=== PATIENT | male | born 1980 | race Hispanic/Latino ===

== ENCOUNTER 2019-06-25 14:29 | Inpatient (IN) | payer OTHER ==
[~2019-06-25] VITALS: Ht 185.4 cm; Wt 150.1 kg
[2019-06-25 16:01] VITALS: BP 135/83
[2019-06-25] MEDS ORDERED: DEXTROSE 50%-WATER 50 ML DISP.SYRIN IV PRN (18:45)
[2019-06-25] MEDS ORDERED: ONDANSETRON HCL 4 MG/2 ML VIAL IV PRN (18:45)
[2019-06-25] MEDS ORDERED: POTASSIUM CHLORIDE 20 MEQ ERTAB PO PRN (18:45)
[2019-06-25] MEDS ORDERED: POTASSIUM CHLORIDE 20MEQ/100ML 100 ML IV PRN (18:45)
[2019-06-25] MEDS ORDERED: NITROGLYCERIN 0.4 MG SL TAB SL PRN (18:45)
[2019-06-25] MEDS ORDERED: ACETAMINOPHEN 325 MG TAB PO PRN ×2 (18:45)
[2019-06-25] MEDS ORDERED: HYDROCODONE/ACETAMINOPHEN 5/325 MG TAB PO PRN (18:45)
[2019-06-25] MEDS ORDERED: GLUCAGON 1MG KIT 1 MG ML IM PRN (18:45)
[2019-06-25] MEDS ORDERED: LIDOCAINE HCL-MPF 1% 2ML VIAL IV PRN (18:45)
[2019-06-25] MEDS ORDERED: GUAIFENESIN-DM 200/20 MG 10 ML PO PRN (18:45)
[2019-06-25] MEDS ORDERED: DiphenhydrAMINE HCL 50 MG/ML VIAL IV PRN (18:45)
[2019-06-25] MEDS ORDERED: HYDRALAZINE HCL 20 MG/ML VIAL IV PRN (18:45)
[2019-06-25] MEDS: IPRATROPIUM/ALBUTEROL SULFATE 3 ML SOLUTION IH PRN (19:07)
[2019-06-25 20:28] VITALS: BP 145/83
[2019-06-25] MEDS ORDERED: FAMOTIDINE/PF 20 MG/2 ML VIAL IV SCH (21:00)
[2019-06-25] MEDS: INSULIN HUMULIN R 100 UNIT/ML 3ML SQ SCH (21:00)
[2019-06-25 23:55] VITALS: BP 166/90
[2019-06-26] VITALS (59 sets, daily range): BP systolic 93–284; BP diastolic 49–137
[2019-06-26 05:08] LABS: BASOPHILS % (AUTO) 0.5 % (0.0-5.0); EOSINOPHILS % (AUTO) 2.4 % (0.0-8.0); HEMATOCRIT 22.4 % (42-54); LYMPHOCYTES % (AUTO) 28.3 % (21.0-51.0); MEAN CORPUSCULAR HEMOGLOBIN 23.4 pg (27.0-33.0); MEAN CORPUSCULAR HGB CONC 32.9 g/dL (32.0-36.0); MONOCYTES % (AUTO) 8.3 % (3.0-13.0); NEUTROPHILS % (AUTO) 60.5 % (40.0-77.0); NUCLEATED RED BLOOD CELLS 0.1 % (0.0-0.19); PLATELET COUNT (AUTO) 221 K/uL (130-400); RED BLOOD CELL COUNT(AUTO) 3.16 MIL/uL (4.50-6.20); RED CELL DISTRIBUTION WIDTH 22.9 % (11.0-15.5); WHITE BLOOD COUNT (AUTO) 9.6 K/uL (4.8-10.8)
[2019-06-26 05:13] LABS: HEMOGLOBIN A1C 9.1 % (4.0-6.0)
[2019-06-26 05:28] LABS: CREATININE 0.9 mg/dL (0.5-1.5); POTASSIUM 3.5 mmol/L (3.5-5.1); THYROID STIMULATING HORMONE 3.98 uIU/mL (0.36-3.74)
[2019-06-26] MEDS: INSULIN HUMULIN R 100 UNIT/ML 3ML SQ SCH (05:29)
[2019-06-26] MEDS: IPRATROPIUM/ALBUTEROL SULFATE 3 ML SOLUTION IH PRN ×2 (06:39→19:26)
[2019-06-26] MEDS ORDERED: SODIUM CHLORIDE 0.9% 1000ML 1,000 ML IV ONE (06:57)
[2019-06-26] MEDS ORDERED: AMINOCAPROIC ACID 15,000 MG in SODIUM CHLORIDE 0.9% 500ML 500 ML IV SCH (07:00)
[2019-06-26] MEDS: CLINDAMYCIN 900 MG/D5% WATER 50 ML IV SCH ×3 (07:00→19:50)
[2019-06-26] MEDS ORDERED: EPINEPHRINE 8 MG in SODIUM CHLORIDE 0.9% 250 ML IV SCH (07:00)
[2019-06-26] MEDS ORDERED: NOREPINEPHRINE BITARTRATE 8 MG/NS 250ML IV SCH ×2 (07:00)
[2019-06-26] MEDS ORDERED: PAPAVERINE HCL 30 MG/ML 2ML VIAL ONE (07:02)
[2019-06-26] MEDS ORDERED: BACITRACIN 50,000 UNIT VIAL ONE (07:02)
[2019-06-26] MEDS ORDERED: SODIUM BICARB 8.4% 50ML SYRINGE ONE (07:18)
[2019-06-26] MEDS ORDERED: ROCURONIUM 10MG/1ML SYR 10 MG/ML ML ONE ×3 (07:19→10:26)
[2019-06-26] MEDS ORDERED: ESMOLOL HCL 10 MG/ML 10 ML VIAL ONE (07:41)
[2019-06-26] MEDS ORDERED: NOREPINEPHRINE BITARTRATE 1 MG/1 ML ML IV ONE (07:41)
[2019-06-26] MEDS ORDERED: LIDOCAINE PF 2% 5ML ABBOJECT ONE (07:41)
[2019-06-26] MEDS ORDERED: AMINOCAPROIC ACID 250 MG/ML 20 ML VIAL IV ONE (07:41)
[2019-06-26] MEDS ORDERED: EPINEPHRINE 1 MG/ML AMPULE ONE (07:41)
[2019-06-26] MEDS ORDERED: HEPARIN SODIUM 1000UNIT/ML 10ML VIAL ONE (07:41)
[2019-06-26] MEDS ORDERED: PROTAMINE SULFATE 10 MG/ML 25ML VIAL IV ONE (07:41)
[2019-06-26] MEDS ORDERED: PROPOFOL 10 MG/ML 20ML VIAL IV ONE (07:42)
[2019-06-26] MEDS ORDERED: MIDAZOLAM HCL 1 MG/ML 2ML VIAL ONE (07:42)
[2019-06-26] MEDS ORDERED: SUFENTANIL CITRATE 50 MCG/ML 1ML AMP ONE (07:47)
[2019-06-26] MEDS ORDERED: DELNIDO FORMULA 1 BAG IV ONE (08:09)
[2019-06-26 09:21] LABS: ABG BASE EXCESS 1.7 mmol/L (-2.0-3.0); ABG HCO3 25.8 mmol/L (21.0-28.0); ABG OXYGEN SATURATION 99.4 % (95.0-99.0); ABG PCO2 38 mmHg (35-48)
[2019-06-26] MEDS ORDERED: NITROGLYCERIN 50 MG/D5% WATER 1 BOT ONE (10:02)
[2019-06-26 10:59] LABS: ABG BASE EXCESS 0.2 mmol/L (-2.0-3.0); ABG HCO3 24.3 mmol/L (21.0-28.0); ABG OXYGEN SATURATION 99.5 % (95.0-99.0); ABG PCO2 37 mmHg (35-48)
[2019-06-26 11:59] LABS: ABG BASE EXCESS -1.6 mmol/L (-2.0-3.0); ABG HCO3 22.5 mmol/L (21.0-28.0); ABG OXYGEN SATURATION 99.2 % (95.0-99.0); ABG PCO2 35 mmHg (35-48)
[2019-06-26] MEDS ORDERED: SODIUM CHLORIDE 0.9% 500ML 500 ML IV SCH (12:14)
[2019-06-26] MEDS ORDERED: POTASSIUM PHOS 15 mMOL+NS250ML 250 ML IV PRN (12:15)
[2019-06-26] MEDS ORDERED: SODIUM CHLORIDE 0.9% 250 ML IV PRN (12:15)
[2019-06-26] MEDS ORDERED: ALBUMIN (HUMAN) 5% 250 ML IV PRN (12:15)
[2019-06-26] MEDS ORDERED: DEXTROSE 50%-WATER 50 ML DISP.SYRIN IV PRN (12:15)
[2019-06-26] MEDS ORDERED: SODIUM CHLORIDE 0.9% 10 ML VIAL IVP PRN (12:15)
[2019-06-26] MEDS ORDERED: ACETAMINOPHEN 325 MG TAB PO PRN (12:15)
[2019-06-26] MEDS ORDERED: ACETAMINOPHEN 650 MG SUPPOSITORY RC PRN (12:15)
[2019-06-26] MEDS ORDERED: SODIUM BICARB 50MEQ 50ML VIAL IV PRN (12:15)
[2019-06-26] MEDS ORDERED: MORPHINE SULFATE 2 MG/ML 1ML SYG IV PRN (12:15)
[2019-06-26] MEDS ORDERED: PROPOFOL 1000 MG/100 ML 100 ML IV PRN (12:15)
[2019-06-26] MEDS ORDERED: SODIUM CHLORIDE 0.9% 1000ML 1,000 ML IV SCH (12:15)
[2019-06-26] MEDS ORDERED: GLUCAGON 1MG KIT 1 MG ML IM PRN (12:15)
[2019-06-26] MEDS ORDERED: NOREPINEPHRINE 4MG/NS 250ML 250 ML IV PRN (12:15)
[2019-06-26] MEDS ORDERED: ONDANSETRON HCL 4 MG/2 ML VIAL IV PRN (12:15)
[2019-06-26] MEDS ORDERED: AMINOCAPROIC ACID 15,000 MG in SODIUM CHLORIDE 0.9% 250 ML IV SCH (12:15)
[2019-06-26] MEDS ORDERED: EPINEPHRINE 8 MG in DEXTROSE 5%-WATER 250 ML IV PRN (12:15)
[2019-06-26] MEDS ORDERED: MORPHINE SULFATE 4 MG/1ML SYG IV PRN (12:15)
--- NOTE | 2019-06-26 12:29 | NUR ---
PT WAS RECEIVED FROM [facility] AFTER CABG X 3, PT WAS ACCOMPANIED BY OR STAFF AND DR. Alex. PT WAS CONNECTED TO VENT AT PRESCRIBED SETTINGS AND WILL ASSESS AND SEND LABS AND OBTAIN ABG'S ORDERED.
[2019-06-26 13:06] LABS: HEMATOCRIT 24.4 % (42-54); MEAN CORPUSCULAR HEMOGLOBIN 23.4 pg (27.0-33.0); MEAN CORPUSCULAR HGB CONC 31.6 g/dL (32.0-36.0); MEAN CORPUSCULAR VOLUME 74.1 fL (79-99); NUCLEATED RED BLOOD CELLS 0.1 % (0.0-0.19); PLATELET COUNT (AUTO) 242 K/uL (130-400); RED BLOOD CELL COUNT(AUTO) 3.29 MIL/uL (4.50-6.20); RED CELL DISTRIBUTION WIDTH 23.4 % (11.0-15.5); WHITE BLOOD COUNT (AUTO) 22.2 K/uL (4.8-10.8)
[2019-06-26 13:06] LABS: ABG BASE EXCESS -0.8 mmol/L (-2.0-3.0); ABG HCO3 24.6 mmol/L (21.0-28.0); ABG OXYGEN SATURATION 95.8 % (95.0-99.0); ABG PCO2 44 mmHg (35-48)
[2019-06-26 13:22] LABS: CREATININE 0.9 mg/dL (0.5-1.5); MAGNESIUM 1.4 mg/dL (1.80-2.40); PHOSPHORUS 4.4 mg/dL (2.5-4.9)
[2019-06-26 13:23] LABS: INR 1.23 (0.85-1.15); PARTIAL THROMBOPLASTIN TIME 25.2 SEC (26.3-35.5); PROTHROMBIN TIME 12.8 SEC (9.6-11.6)
--- NOTE | 2019-06-26 13:48 | NUR ---
JORDAN PLAN PATIENT DOWN FOR PROCEDURE. LOLIS WILL CONTINUE TO FOLLOW. Addendum: 06/26/19 at 1350 by WILI LAYTON RN CM Amended: Links added.
[2019-06-26 14:28] LABS: ABG BASE EXCESS 0.9 mmol/L (-2.0-3.0); ABG HCO3 24.8 mmol/L (21.0-28.0); ABG OXYGEN SATURATION 92.6 % (95.0-99.0); ABG PCO2 37 mmHg (35-48)
[2019-06-26] MEDS: MAGNESIUM 2GM PREMIX 50ML 50 ML IV PRN (16:32)
[2019-06-26] MEDS: POTASSIUM CHLORIDE 20MEQ/100ML 100 ML IV PRN (16:32)
[2019-06-26] MEDS: INSULIN REGULAR, HUMAN 3ML 100 UNIT in SODIUM CHLORIDE 0.9% 99 ML IV SCH ×2 (16:39)
[2019-06-26] MEDS: NITROGLYCERIN 50 MG/D5% WATER 250 BOT IV SCH (16:40)
[2019-06-26 17:22] LABS: ABG BASE EXCESS 1.1 mmol/L (-2.0-3.0); ABG HCO3 24.8 mmol/L (21.0-28.0); ABG OXYGEN SATURATION 99.2 % (95.0-99.0); ABG PCO2 35 mmHg (35-48)
[2019-06-26 20:05] LABS: ABG HCO3 25.8 mmol/L (21.0-28.0); ABG OXYGEN SATURATION 98.1 % (95.0-99.0); ABG PCO2 37 mmHg (35-48)
[2019-06-26] MEDS: CALCIUM GLUCONATE 1 GM in SODIUM CHLORIDE 0.9% 50 ML IV PRN (20:29)
[2019-06-26] MEDS: ATORVASTATIN CALCIUM 20 MG TABLET PO SCH (20:31)
[2019-06-26] MEDS: FAMOTIDINE/PF 20 MG/2 ML VIAL IV SCH (20:31)
[2019-06-26 22:24] LABS: ABG HCO3 25.8 mmol/L (21.0-28.0); ABG OXYGEN SATURATION 97.5 % (95.0-99.0); ABG PCO2 38 mmHg (35-48)
[2019-06-27] VITALS (64 sets, daily range): BP systolic 114–188; BP diastolic 65–113
[2019-06-27 00:35] LABS: ABG HCO3 25.6 mmol/L (21.0-28.0); ABG OXYGEN SATURATION 91.8 % (95.0-99.0); ABG PCO2 36 mmHg (35-48)
[2019-06-27] MEDS: CALCIUM GLUCONATE 1 GM in SODIUM CHLORIDE 0.9% 50 ML IV PRN (00:37)
[2019-06-27] MEDS: POTASSIUM CHLORIDE 20MEQ/100ML 100 ML IV PRN ×2 (00:38→05:43)
[2019-06-27 02:17] LABS: ABG BASE EXCESS 0.3 mmol/L (-2.0-3.0); ABG HCO3 22.2 mmol/L (21.0-28.0); ABG OXYGEN SATURATION 94.8 % (95.0-99.0); ABG PCO2 29 mmHg (35-48)
[2019-06-27 03:19] LABS: ABG BASE EXCESS 0.7 mmol/L (-2.0-3.0); ABG HCO3 23.3 mmol/L (21.0-28.0); ABG OXYGEN SATURATION 94.3 % (95.0-99.0); ABG PCO2 32 mmHg (35-48)
[2019-06-27] MEDS: CLINDAMYCIN 900 MG/D5% WATER 50 ML IV SCH ×2 (04:34→12:31)
[2019-06-27 04:47] LABS: ABG BASE EXCESS 0.2 mmol/L (-2.0-3.0); ABG OXYGEN SATURATION 91.8 % (95.0-99.0); ABG PCO2 32 mmHg (35-48)
[2019-06-27 05:00] LABS: MEAN CORPUSCULAR HEMOGLOBIN 23.4 pg (27.0-33.0); MEAN CORPUSCULAR HGB CONC 31.8 g/dL (32.0-36.0); MEAN CORPUSCULAR VOLUME 73.5 fL (79-99); PLATELET COUNT (AUTO) 257 K/uL (130-400); RED CELL DISTRIBUTION WIDTH 24.2 % (11.0-15.5); WHITE BLOOD COUNT (AUTO) 15.3 K/uL (4.8-10.8)
[2019-06-27 05:14] LABS: INR 1.19 (0.85-1.15); PARTIAL THROMBOPLASTIN TIME 26.7 SEC (26.3-35.5); PROTHROMBIN TIME 12.4 SEC (9.6-11.6)
[2019-06-27 05:23] LABS: CREATININE 0.7 mg/dL (0.5-1.5); MAGNESIUM 1.8 mg/dL (1.80-2.40); PHOSPHORUS 3.5 mg/dL (2.5-4.9); POTASSIUM 3.7 mmol/L (3.5-5.1)
[2019-06-27] MEDS ORDERED: CALCIUM GLUCONATE 1 GM/10 ML VIAL IV ONE (05:37)
[2019-06-27] MEDS: MAGNESIUM 2GM PREMIX 50ML 50 ML IV PRN (05:42)
[2019-06-27] MEDS: NITROGLYCERIN 50 MG/D5% WATER 250 BOT IV SCH ×2 (05:42→20:38)
[2019-06-27] MEDS: INSULIN REGULAR, HUMAN 3ML 100 UNIT in SODIUM CHLORIDE 0.9% 99 ML IV SCH ×2 (05:45)
[2019-06-27] MEDS: IPRATROPIUM/ALBUTEROL SULFATE 3 ML SOLUTION IH PRN ×2 (06:26→18:01)
[2019-06-27 06:31] LABS: ABG BASE EXCESS 2.2 mmol/L (-2.0-3.0); ABG HCO3 25.7 mmol/L (21.0-28.0); ABG OXYGEN SATURATION 94.1 % (95.0-99.0); ABG PCO2 37 mmHg (35-48)
[2019-06-27] MEDS: FUROSEMIDE 10 MG/ML 2ML VIAL IV SCH ×2 (08:32→20:39)
[2019-06-27] MEDS: FAMOTIDINE/PF 20 MG/2 ML VIAL IV SCH ×2 (08:32→20:39)
[2019-06-27] MEDS: ASPIRIN 325MG EC TAB 325 MG TABLET.DR PO SCH (08:32)
[2019-06-27] MEDS: TRAMADOL HCL 50 MG TABLET PO PRN ×2 (14:01→21:20)
[2019-06-27] MEDS ORDERED: METOPROLOL TARTRATE 25 MG TAB ONE (16:33)
[2019-06-27] MEDS: METOPROLOL TARTRATE 25 MG TAB PO SCH ×2 (16:58→20:39)
--- NOTE | 2019-06-27 19:45 | NUR ---
ASSESSMENT PT RESTING IN BED. CALLBELL REVIEWED AND WITHIN REACH, BEDSIDE MONITOR REVIEWED AND PARAMETERS ADJUSTED. WHITE BOARD UP-DATED. ASSESSMENT COMPLETED, SEE FLOW SHEET.
[2019-06-27] MEDS: ATORVASTATIN CALCIUM 20 MG TABLET PO SCH (20:39)
[2019-06-28] VITALS (53 sets, daily range): BP systolic 115–155; BP diastolic 54–97
[2019-06-28] MEDS: INSULIN REGULAR, HUMAN 3ML 100 UNIT in SODIUM CHLORIDE 0.9% 99 ML IV SCH ×2 (02:18)
--- NOTE | 2019-06-28 03:14 | NUR ---
ASSESSMENT PT RESTING IN BED, BI-PAP IN USEAT BEDSIDE. CALLBELL WITHIN REACH. WHITE BOARD UP-DATED. ASSESSMENT COMPLETED, SEE FLOW SHEET.
[2019-06-28 03:49] LABS: HEMATOCRIT 22.5 % (42-54); MEAN CORPUSCULAR HEMOGLOBIN 23.9 pg (27.0-33.0); MEAN CORPUSCULAR HGB CONC 32.1 g/dL (32.0-36.0); MEAN CORPUSCULAR VOLUME 74.4 fL (79-99); PLATELET COUNT (AUTO) 235 K/uL (130-400); RED BLOOD CELL COUNT(AUTO) 3.03 MIL/uL (4.50-6.20); RED CELL DISTRIBUTION WIDTH 24.4 % (11.0-15.5); WHITE BLOOD COUNT (AUTO) 19.2 K/uL (4.8-10.8)
[2019-06-28 04:17] LABS: CREATININE 0.9 mg/dL (0.5-1.5); MAGNESIUM 1.7 mg/dL (1.80-2.40); POTASSIUM 3.9 mmol/L (3.5-5.1)
[2019-06-28] MEDS: MAGNESIUM 2GM PREMIX 50ML 50 ML IV PRN (06:47)
[2019-06-28] MEDS: IPRATROPIUM/ALBUTEROL SULFATE 3 ML SOLUTION IH PRN ×2 (07:16→17:41)
[2019-06-28] MEDS: ASPIRIN 325MG EC TAB 325 MG TABLET.DR PO SCH (08:06)
[2019-06-28] MEDS: FAMOTIDINE/PF 20 MG/2 ML VIAL IV SCH ×2 (08:07→20:12)
[2019-06-28] MEDS: METOPROLOL TARTRATE 25 MG TAB PO SCH ×2 (08:07→20:13)
[2019-06-28] MEDS: NITROGLYCERIN 50 MG/D5% WATER 250 BOT IV SCH (08:13)
[2019-06-28] MEDS: ENOXAPARIN SODIUM 30 MG/0.3 ML SQ SCH (09:00)
[2019-06-28] MEDS ORDERED: METOPROLOL TARTRATE 25 MG TAB PO SCH (09:00)
[2019-06-28] MEDS ORDERED: FUROSEMIDE 20 MG TABLET PO SCH (09:00)
--- NOTE | 2019-06-28 09:00 | NUR ---
LOVENOX HELD LOVENOX HELD DUE TO LOW H/H; WILL LET DR LAWRENCE KNOW
[2019-06-28] MEDS: FUROSEMIDE 10 MG/ML 2ML VIAL IV SCH ×3 (11:00→23:22)
[2019-06-28] MEDS ORDERED: LISINOPRIL 10 MG TABLET PO SCH (11:36)
[2019-06-28] MEDS: LISINOPRIL 10 MG TABLET PO SCH ×2 (11:40→20:12)
[2019-06-28] MEDS: TRAMADOL HCL 50 MG TABLET PO PRN (15:55)
[2019-06-28] MEDS ORDERED: FUROSEMIDE 10 MG/ML 4ML VIAL IV PRN (16:15)
--- NOTE | 2019-06-28 17:40 | NUR ---
CHEST TUBES REMOVED CHEST TUBES REMOVED AT THIS TIME; NO COMPLICATIONS NOTED
--- NOTE | 2019-06-28 20:00 | NUR ---
ASSESSMENT AWAKE. RESTING IN BED. REMINDED TO USE PILLOW TO SPLINT CHEST WITH DBC. REMINDED NOT TO USE ARMS TO PUSH OR PULL SELF WITH. ALSO REMINDED TO USE IS Q1H FOR 10 BREATHS WHILE AWAKE TO PREVENT PNEUMONIA. ASSESSMENT COMPLETED SEE FLOW SHEET. Addendum: 06/28/19 at 2037 by SAMMIE DELGADO RN RN Amended: Links added.
[2019-06-28] MEDS: ATORVASTATIN CALCIUM 20 MG TABLET PO SCH (20:13)
[2019-06-28] MEDS: INSULIN HUMULIN R 100 UNIT/ML 3ML SQ SCH (20:22)
[2019-06-29] VITALS (21 sets, daily range): BP systolic 111–155; BP diastolic 61–92
[2019-06-29 04:02] LABS: HEMATOCRIT 26.7 % (42-54); MEAN CORPUSCULAR HEMOGLOBIN 24.2 pg (27.0-33.0); MEAN CORPUSCULAR HGB CONC 31.8 g/dL (32.0-36.0); MEAN CORPUSCULAR VOLUME 76.1 fL (79-99); NUCLEATED RED BLOOD CELLS 0.1 % (0.0-0.19); PLATELET COUNT (AUTO) 262 K/uL (130-400); RED BLOOD CELL COUNT(AUTO) 3.51 MIL/uL (4.50-6.20); WHITE BLOOD COUNT (AUTO) 16.6 K/uL (4.8-10.8)
[2019-06-29 04:10] LABS: CREATININE 0.9 mg/dL (0.5-1.5); MAGNESIUM 1.8 mg/dL (1.80-2.40); POTASSIUM 3.6 mmol/L (3.5-5.1)
[2019-06-29] MEDS: MAGNESIUM 2GM PREMIX 50ML 50 ML IV PRN (06:00)
[2019-06-29] MEDS: POTASSIUM CHLORIDE 10% ELIXIR 20 MEQ/15 ML UDCUP PO PRN (06:00)
[2019-06-29] MEDS: TRAMADOL HCL 50 MG TABLET PO PRN ×2 (06:01→12:36)
[2019-06-29] MEDS: INSULIN HUMULIN R 100 UNIT/ML 3ML SQ SCH ×4 (06:07→20:32)
[2019-06-29] MEDS: IPRATROPIUM/ALBUTEROL SULFATE 3 ML SOLUTION IH PRN ×2 (06:27→18:33)
[2019-06-29] MEDS: FAMOTIDINE/PF 20 MG/2 ML VIAL IV SCH ×2 (08:26→20:27)
[2019-06-29] MEDS: LISINOPRIL 10 MG TABLET PO SCH (08:30)
[2019-06-29] MEDS: METOPROLOL TARTRATE 25 MG TAB PO SCH ×2 (08:30→20:27)
[2019-06-29] MEDS: ASPIRIN 325MG EC TAB 325 MG TABLET.DR PO SCH (08:30)
[2019-06-29] MEDS: ENOXAPARIN SODIUM 30 MG/0.3 ML SQ SCH (08:37)
[2019-06-29] MEDS: FUROSEMIDE 10 MG/ML 2ML VIAL IV SCH ×2 (11:11→22:56)
[2019-06-29] MEDS: POTASSIUM CHLORIDE 20MEQ/100ML 100 ML IV PRN (11:14)
--- NOTE | 2019-06-29 20:00 | NUR ---
ASSESSMENT AWAKE. RESTING IN BED. REMINDED NOT TO USE ARMS TO PUSH OR PULL SELF WITH. REMINDED TO USE IS Q1H FOR 10 BREATHS WHILE AWAKE. ALSO REMINDED TO USE PILLOW TO SPLINT CHEST WITH DBC. ASSESSMENT COMPLETED SEE FLOW SHEET. Addendum: 06/29/19 at 1124 by SAMMIE DELGADO RN RN Amended: Links added.
[2019-06-29] MEDS: LISINOPRIL 20 MG TABLET PO SCH (20:26)
[2019-06-29] MEDS: ATORVASTATIN CALCIUM 20 MG TABLET PO SCH (20:26)
[2019-06-30] MEDS: TRAMADOL HCL 50 MG TABLET PO PRN ×2 (02:09→15:21)
[2019-06-30 03:59] LABS: HEMATOCRIT 26.3 % (42-54); MEAN CORPUSCULAR HGB CONC 31.7 g/dL (32.0-36.0); NUCLEATED RED BLOOD CELLS 0.1 % (0.0-0.19); PLATELET COUNT (AUTO) 284 K/uL (130-400); RED BLOOD CELL COUNT(AUTO) 3.46 MIL/uL (4.50-6.20); RED CELL DISTRIBUTION WIDTH 24.2 % (11.0-15.5)
[2019-06-30 04:05] LABS: CREATININE 0.8 mg/dL (0.5-1.5); MAGNESIUM 1.8 mg/dL (1.80-2.40); POTASSIUM 3.8 mmol/L (3.5-5.1)
[2019-06-30 04:12] VITALS: BP 140/85
[2019-06-30] MEDS: MAGNESIUM 2GM PREMIX 50ML 50 ML IV PRN (06:12)
[2019-06-30] MEDS: POTASSIUM CHLORIDE 10% ELIXIR 20 MEQ/15 ML UDCUP PO PRN (06:20)
[2019-06-30] MEDS: INSULIN HUMULIN R 100 UNIT/ML 3ML SQ SCH ×4 (06:31→20:45)
[2019-06-30] MEDS: IPRATROPIUM/ALBUTEROL SULFATE 3 ML SOLUTION IH PRN ×2 (07:16→19:06)
[2019-06-30] MEDS: FAMOTIDINE/PF 20 MG/2 ML VIAL IV SCH ×2 (08:49→20:45)
[2019-06-30] MEDS: METOPROLOL TARTRATE 25 MG TAB PO SCH ×2 (08:49→20:44)
[2019-06-30] MEDS: ASPIRIN 325MG EC TAB 325 MG TABLET.DR PO SCH (08:49)
[2019-06-30] MEDS: LISINOPRIL 20 MG TABLET PO SCH ×2 (08:50→20:45)
[2019-06-30] MEDS: ENOXAPARIN SODIUM 30 MG/0.3 ML SQ SCH (08:51)
[2019-06-30] MEDS: FUROSEMIDE 20 MG TABLET PO SCH ×2 (08:58→16:02)
[2019-06-30 09:00] VITALS: BP 134/72
[2019-06-30] MEDS ORDERED: LACTULOSE 20 GM/30 ML UDCUP ONE (13:08)
[2019-06-30] MEDS ORDERED: LACTULOSE 20 GM/30 ML UDCUP PO PRN (13:15)
--- NOTE | 2019-06-30 14:02 | NUR ---
RD NOTIFICATION RD CONSULT DUE TO LOS X 5. DIET: HH/ 75GMCCD. PO intake 100% and has good appetite as per pt. S/P off pump CAD bypass graft. Post op day #3. Pt tolerating feedings well. Pt having breathing treatment during time of visit; not a good time for education. RD will follow up before d/c to provide DM and Heart Healthy medical nutrition therapy. LBM: 08/24; pt unable to pass BM. Continue current diet RD will follow up to provide diet and nutrition education Recommend stool softener Thank you. Addendum: 06/30/19 at [address] Amended: Links added.
[2019-06-30 15:39] VITALS: BP 130/77
[2019-06-30 19:33] VITALS: BP 154/74
[2019-06-30] MEDS: ATORVASTATIN CALCIUM 20 MG TABLET PO SCH (20:45)
[2019-06-30] MEDS: BISACODYL 5 MG TABLET.DR PO SCH (20:45)
[2019-06-30 23:28] VITALS: BP 120/69
[2019-07-01] MEDS: TRAMADOL HCL 50 MG TABLET PO PRN ×2 (00:27→15:06)
[2019-07-01 03:44] VITALS: BP 142/84
[2019-07-01] MEDS: IPRATROPIUM/ALBUTEROL SULFATE 3 ML SOLUTION IH PRN ×2 (06:10→18:28)
[2019-07-01] MEDS: INSULIN HUMULIN R 100 UNIT/ML 3ML SQ SCH ×4 (07:01→21:00)
[2019-07-01 07:07] LABS: BASOPHILS % (AUTO) 0.5 % (0.0-5.0); EOSINOPHILS % (AUTO) 2.1 % (0.0-8.0); HEMATOCRIT 26.6 % (42-54); LYMPHOCYTES % (AUTO) 15.8 % (21.0-51.0); MEAN CORPUSCULAR HEMOGLOBIN 24.1 pg (27.0-33.0); MEAN CORPUSCULAR HGB CONC 32.3 g/dL (32.0-36.0); MEAN CORPUSCULAR VOLUME 74.7 fL (79-99); MONOCYTES % (AUTO) 11.2 % (3.0-13.0); NEUTROPHILS % (AUTO) 70.4 % (40.0-77.0); PLATELET COUNT (AUTO) 335 K/uL (130-400); RED BLOOD CELL COUNT(AUTO) 3.57 MIL/uL (4.50-6.20); RED CELL DISTRIBUTION WIDTH 23.9 % (11.0-15.5)
[2019-07-01 07:19] LABS: CREATININE 0.8 mg/dL (0.5-1.5); MAGNESIUM 1.7 mg/dL (1.80-2.40); POTASSIUM 3.8 mmol/L (3.5-5.1)
[2019-07-01 07:56] VITALS: BP 154/87
--- NOTE | 2019-07-01 08:00 | NUR ---
AM NOTE Awake, alert, and orientedx3. Does not appear in any distress. Sternal dressings clean and dry. Sanders catheter to gravity. Instructed on use of call light for any assistance, plan of care discussed, verbalized understanding. Mother at bedside.
[2019-07-01] MEDS: FAMOTIDINE/PF 20 MG/2 ML VIAL IV SCH ×2 (08:27→21:44)
[2019-07-01] MEDS: LISINOPRIL 20 MG TABLET PO SCH ×2 (08:27→21:44)
[2019-07-01] MEDS: ASPIRIN 325MG EC TAB 325 MG TABLET.DR PO SCH (08:27)
[2019-07-01] MEDS: METOPROLOL TARTRATE 25 MG TAB PO SCH ×2 (08:27→21:44)
[2019-07-01] MEDS: ENOXAPARIN SODIUM 30 MG/0.3 ML SQ SCH (08:28)
[2019-07-01] MEDS: BISACODYL 5 MG TABLET.DR PO SCH ×2 (08:28→21:00)
[2019-07-01] MEDS: FUROSEMIDE 20 MG TABLET PO SCH ×2 (08:28→17:17)
--- NOTE | 2019-07-01 11:28 | NUR ---
Diabetes diet education: Provided pt with printed materials on Diabetic diet and Heart Healthy diet. Pt encouraged to monitor CHO intake and Saturated fat intake. Pt verbalize understanding. Pt became emotional during diet education, states he has intentionally lost a total of 130lbs in the past year but stopped attempting to lose additional weight. States this is a wake up call and will begin on a weight loss journey of eating healthy meals and begin physical activity. Addendum: 07/01/19 at [address] Amended: Links added.
[2019-07-01 11:37] VITALS: BP 137/85
--- NOTE | 2019-07-01 15:15 | NUR ---
MD VISIT Dr. Sen in to see pt, update given. Order received and will carry out. Sanders catheter discontinued as ordered, due to void at 2114.
[2019-07-01 15:33] VITALS: BP 149/93
[2019-07-01 20:00] VITALS: BP 158/88
[2019-07-01] MEDS: ATORVASTATIN CALCIUM 20 MG TABLET PO SCH (21:45)
[2019-07-02] VITALS: BP 154/91
[2019-07-02] MEDS: TRAMADOL HCL 50 MG TABLET PO PRN ×2 (02:54→08:10)
[2019-07-02 04:00] VITALS: BP 153/90
[2019-07-02] MEDS: IPRATROPIUM/ALBUTEROL SULFATE 3 ML SOLUTION IH PRN (06:07)
[2019-07-02] MEDS: INSULIN HUMULIN R 100 UNIT/ML 3ML SQ SCH ×2 (06:26→11:05)
--- NOTE | 2019-07-02 07:00 | NUR ---
AM NOTE Awake, alert, and oriented x3. Denies any shortness of breath. Walks to restroom, has been voiding with no issues. Plan of care discussed, verbalized understanding. Sister at bedside.
[2019-07-02 07:29] VITALS: BP 159/83
[2019-07-02] MEDS ORDERED: FURO20TA6 PO (07:39)
[2019-07-02] MEDS ORDERED: ASPI-891 PO (07:39)
[2019-07-02] MEDS ORDERED: LISI-613 PO (07:39)
[2019-07-02] MEDS ORDERED: ATOR20TA65 PO (07:39)
[2019-07-02] MEDS ORDERED: METO25 PO (07:39)
[2019-07-02] MEDS: LISINOPRIL 20 MG TABLET PO SCH (08:05)
[2019-07-02] MEDS: METOPROLOL TARTRATE 25 MG TAB PO SCH (08:05)
[2019-07-02] MEDS: ENOXAPARIN SODIUM 30 MG/0.3 ML SQ SCH (08:05)
[2019-07-02] MEDS: FAMOTIDINE/PF 20 MG/2 ML VIAL IV SCH (08:06)
[2019-07-02] MEDS: ASPIRIN 325MG EC TAB 325 MG TABLET.DR PO SCH (08:06)
[2019-07-02] MEDS: BISACODYL 5 MG TABLET.DR PO SCH (08:06)
[2019-07-02] MEDS: FUROSEMIDE 20 MG TABLET PO SCH (08:06)
[2019-07-02 11:15] VITALS: BP 142/81
--- NOTE | 2019-07-02 11:45 | NUR ---
MD VISIT Dr. Sne in to see pt, okay to go home from cardiovascular standpoint, will convey to [facility] for discharge today.
--- NOTE | 2019-07-02 13:46 | NUR ---
DC Pt discharged home as ordered by MD. All belongings given to pt, telemetry discontinued. IV catheter removed. Mother at bedside. Instructed to call for appts for folow-up, info given, verbalized understanding.
--- NOTE | 2019-07-03 16:17 | NUR ---
CALLED IN SCRIPTS TO [facility] ON [address] ([phone]). RETURN CALL MADE TO PATIENT AND INFORMED HIM OF SCRIPTS CALLED IN.
== END 2019-07-02 13:57 | disposition home or self-care (01) | DRG 235 ==
LOC: 2AH 15:47 → 2CV 06-26 09:22 → 2CH 06-27 07:31
PROVIDERS: ADMIT Internal Medicine Pulmonary Disease; ATTEND Internal Medicine Pulmonary Disease
PROC: 5A09357 Assistance with Respiratory Ventilation, Less than 24 Consecutive Hours, Continuous Positive Airway Pressure (ICD-10-PCS; 2019-06-25)
PROC: 0T9B80Z Drainage of Bladder with Drainage Device, Via Natural or Artificial Opening Endoscopic (ICD-10-PCS; 2019-06-26)
PROC: 02100Z9 Bypass Coronary Artery, One Artery from Left Internal Mammary, Open Approach (ICD-10-PCS; principal; 2019-06-26 07:35)
PROC: 021109W Bypass Coronary Artery, Two Arteries from Aorta with Autologous Venous Tissue, Open Approach (ICD-10-PCS; 2019-06-26 07:35)
PROC: 06BQ4ZZ Excision of Left Saphenous Vein, Percutaneous Endoscopic Approach (ICD-10-PCS; 2019-06-26 07:35)
PROC: 30233N1 Transfusion of Nonautologous Red Blood Cells into Peripheral Vein, Percutaneous Approach (ICD-10-PCS; 2019-06-27)
PROC: 5A09357 Assistance with Respiratory Ventilation, Less than 24 Consecutive Hours, Continuous Positive Airway Pressure (ICD-10-PCS; 2019-06-27)
PROC: 5A09357 Assistance with Respiratory Ventilation, Less than 24 Consecutive Hours, Continuous Positive Airway Pressure (ICD-10-PCS; 2019-06-28)
PROC: 5A09357 Assistance with Respiratory Ventilation, Less than 24 Consecutive Hours, Continuous Positive Airway Pressure (ICD-10-PCS; 2019-06-29)
PROC: 5A09357 Assistance with Respiratory Ventilation, Less than 24 Consecutive Hours, Continuous Positive Airway Pressure (ICD-10-PCS; 2019-06-30)
PROC: 5A09357 Assistance with Respiratory Ventilation, Less than 24 Consecutive Hours, Continuous Positive Airway Pressure (ICD-10-PCS; 2019-07-01)
DX: I21.4 Non-ST elevation (NSTEMI) myocardial infarction (principal); I50.33 Acute on chronic diastolic (congestive) heart failure; J95.821 Acute postprocedural respiratory failure; I42.0 Dilated cardiomyopathy; Z68.42 Body mass index [BMI] 45.0-49.9, adult; D62 Acute posthemorrhagic anemia; K92.2 Gastrointestinal hemorrhage, unspecified; I25.10 Atherosclerotic heart disease of native coronary artery without angina pectoris; E11.9 Type 2 diabetes mellitus without complications; E66.01 Morbid (severe) obesity due to excess calories; F17.210 Nicotine dependence, cigarettes, uncomplicated; F12.10 Cannabis abuse, uncomplicated; F10.10 Alcohol abuse, uncomplicated; I25.5 Ischemic cardiomyopathy; S30.1XXA Contusion of abdominal wall, initial encounter; G47.33 Obstructive sleep apnea (adult) (pediatric); E78.5 Hyperlipidemia, unspecified; D50.9 Iron deficiency anemia, unspecified; E78.2 Mixed hyperlipidemia; N35.919 Unspecified urethral stricture, male, unspecified site; I11.0 Hypertensive heart disease with heart failure; I44.7 Left bundle-branch block, unspecified; I97.3 Postprocedural hypertension; R31.0 Gross hematuria; Y93.89 Activity, other specified; Y92.89 Other specified places as the place of occurrence of the external cause; Y99.8 Other external cause status; Z88.0 Allergy status to penicillin; Z79.82 Long term (current) use of aspirin; Z79.899 Other long term (current) drug therapy; Z91.19 Patient's noncompliance with other medical treatment and regimen; Z83.3 Family history of diabetes mellitus; Z82.49 Family history of ischemic heart disease and other diseases of the circulatory system
CPT/HCPCS: 36415; 36430; 71045; 80048; 80061; 82330; 82435; 82803; 82947; 82948; 83036; 83605; 83735; 84100; 84132; 84295; 84439; 84443; 85018; 85025; 85027; 85347; 85610; 85730; 86850; 86900; 86901; 86922; 93005; 93306; 93880; 94002; 94003; 94010; 94150; 94640; 94660; 94664; 97039; A4357; A7048; G0378; J0171; J0610; J1644; J1650; J1815; J1940; J2001; J2250; J2440; J2704; J2720; J3475; J3480; J3490; J7030; J7040; P9016